=== PATIENT | male | born 1955 | race Caucasian/White ===

== ENCOUNTER 2023-09-01 11:33 | Day surgery (SDC) | payer OTHER, BC ==
[2023-09-01 12:02] VITALS: BMI 31.9
[2023-09-01 12:56] VITALS: TEMP 98
[2023-09-01 12:57] VITALS: RESP 18
[2023-09-01 12:58] VITALS: BP 129/68; PULSE 62
== END 2023-09-01 13:18 | disposition home or self-care (01) ==
LOC: FASU-ENDO 11:33
PROVIDERS: ATTEND Internal Medicine Gastroenterology
PROC: 0DBP8ZX Excision of Rectum, Via Natural or Artificial Opening Endoscopic, Diagnostic (ICD-10-PCS; principal; 2023-09-01 12:19)
DX: Z12.11 Encounter for screening for malignant neoplasm of colon (principal); D12.8 Benign neoplasm of rectum; Z83.719 Family history of colon polyps, unspecified
CPT/HCPCS: 82962; 88305-TC

== ENCOUNTER 2024-03-19 10:46 | Emergency (ER) | payer OTHER, BC ==
[2024-03-19 10:56] VITALS: RESP 18; BMI 32.1
[2024-03-19] MEDS ORDERED: ACETAMINOPHEN 500 MG TABLET (FP) ONE (12:17)
[2024-03-19] MEDS: ACETAMINOPHEN 500 MG TABLET (FP) PO ONE (12:21)
[2024-03-19 14:52] VITALS: BP 158/89; PULSE 62; TEMP 98
== END 2024-03-19 14:54 | disposition home or self-care (01) ==
LOC: JERFT 10:46
DX: S02.2XXA Fracture of nasal bones, initial encounter for closed fracture (principal); J01.90 Acute sinusitis, unspecified; R04.0 Epistaxis; Y04.8XXA Assault by other bodily force, initial encounter
CPT/HCPCS: 70486-TC; 99284-25